=== PATIENT | male | born 1975 | race Caucasian/White ===

== ENCOUNTER 2024-01-06 10:22 | Outpatient (CLI) | payer OTHER, SELFPAY | END 2024-01-06 10:23 | disposition home or self-care (01) | LOC: LKVREF 10:24 | PROVIDERS: PCP Nurse Practitioner Family; Visit Provider Nurse Practitioner Family | DX: Z00.00 Encounter for general adult medical examination without abnormal findings (principal); E78.5 Hyperlipidemia, unspecified; E03.9 Hypothyroidism, unspecified; E29.1 Testicular hypofunction; R73.03 Prediabetes; I10 Essential (primary) hypertension; Z13.6 Encounter for screening for cardiovascular disorders; Z87.898 Personal history of other specified conditions | CPT/HCPCS: 80053; 80061; 84443 ==